=== PATIENT | female | born 1975 | race Caucasian/White ===

== ENCOUNTER → 2017-10-29 | Outpatient (CLI) | payer OTHER | END | disposition home or self-care (01) | LOC: KCIC MAMMO 09:58 | DX: Z12.31 Encounter for screening mammogram for malignant neoplasm of breast (principal); N63.20 Unspecified lump in the left breast, unspecified quadrant | CPT/HCPCS: 77063; 77067 ==

== ENCOUNTER → 2019-03-23 | Outpatient (CLI) | payer OTHER ==
--- NOTE | 2019-03-23 17:17 | KCIC ---
Bilateral digital screening mammograms with 3-D tomosynthesis: Reason for examination: Routine screening. Comparison is made to previous mammographic studies dated 10/29/2017 and 12/16/2013 and ultrasound examinations dated 06/08/2013 and 12/09/2012. Bilateral mammograms in CC and oblique projections were obtained with 2-D imaging and 3-D tomosynthesis imaging on a Siemens Inspiration unit and reviewed on the workstation. Interpretation was made with the benefit of CAD. The skin and nipples show no abnormalities. No abnormal axillary lymph nodes are seen. The breast parenchyma is heterogeneously dense. (Breast density: Category C.) There is a bilobed nodular lesion at the central 4:00 B position of the left breast which may correspond to the complex lesion seen previously on ultrasound examination. There are no new dominant masses, suspicious calcifications or architectural distortion. Impression: Continued presence of a bilobed nodular density located centrally at the 4:00 B position of the left breast. Further evaluation with ultrasound can be performed to verify stability of this finding. Your patient's mammogram demonstrates that she has dense breast tissue (breast density category C or D), which could hide abnormalities, and if she has other risk factors for breast cancer that have been identified, she might benefit from supplemental screening tests that may be suggested by you as her ordering physician. Dense breast tissue, in and of itself, is a relatively common condition. Therefore, this information is not provided to cause undue concern, but rather to raise your awareness and to promote discussion with your patient regarding the presence of other risk factors, in addition to dense breast tissue. Your patient's mammography results will be sent to her. BI-RADS Category 0: Incomplete. Needs additional imaging evaluation. "Our facility is accredited by the [employer] Mammography [employer]." This patient's information has been entered into a reminder system for the patient to be notified with the results of her examination and a target date for the next mammogram. Electronically signed by: Jen Arenas MD (03/23/2019 5:15 PM) [id number]
== END | disposition home or self-care (01) ==
LOC: KCIC MAMMO 12:23
PROVIDERS: ATTEND Obstetrics & Gynecology
DX: Z12.31 Encounter for screening mammogram for malignant neoplasm of breast (principal)
CPT/HCPCS: 77063; 77067

== ENCOUNTER → 2019-03-31 | Outpatient (CLI) | payer OTHER ==
--- NOTE | 2019-03-31 09:40 | KCIC ---
BREAST LEFT Clinical Indication: Abnormal screening mammogram. Comparison: Bilateral mammogram March 23, 2019 and October 29, 2017. Left breast ultrasound December 16, 2013; June 08, 2013; and December 09, 2012. TECHNIQUE: Real-time ultrasound imaging of the left breast is performed. Findings: At the 3:30 o'clock position 4 cm from the nipple, there is a 3 mm probable complicated cyst. At the 3:30 o'clock position 3 cm from the nipple, macrolobular hypoechoic mass is redemonstrated measuring 9 x 6 mm. The size is stable. There is increased through transmission. Long-term stability supports a benign etiology. The mass may be a fibroadenoma. No abnormal axillary lymph node. IMPRESSION: 1. Interval stability of macrolobular hypoechoic mass 3:30 o'clock position 3 cm from the nipple. Recommend routine mammogram screening. 2. BI-RADS Category 2, benign findings. Electronically signed by: Joel Medina MD (03/31/2019 9:37 AM) [id number]
== END | disposition home or self-care (01) ==
LOC: KCIC US 08:48
PROVIDERS: ATTEND Obstetrics & Gynecology
DX: N63.23 Unspecified lump in the left breast, lower outer quadrant (principal)
CPT/HCPCS: 76641

== ENCOUNTER → 2020-06-05 | Outpatient (CLI) | payer OTHER ==
--- NOTE | 2020-06-05 15:50 | KCIC ---
Bilateral digital screening mammograms with 3-D tomosynthesis: Reason for examination: Routine screening. Comparison is made to previous studies dated back to 12/16/2013. Bilateral mammograms in CC and oblique projections were obtained with 2-D imaging and 3-D tomosynthesis imaging on a Siemens Inspiration unit and reviewed on the workstation. Interpretation was made with the benefit of CAD. The skin and nipples show no abnormalities. No abnormal axillary lymph nodes are seen. The breast parenchyma is heterogeneously dense. (Breast density: Category C.) There continues be a small circumscribed nodule centrally in the left breast which appears to be stable. There has been resolution of the small nodules in the upper outer quadrant of the left breast. There are no new dominant masses, suspicious calcifications or architectural distortion. Impression: No evidence of malignancy. Recommend routine screening. Your patient's mammogram demonstrates that she has dense breast tissue (breast density category C or D), which could hide abnormalities, and if she has other risk factors for breast cancer that have been identified, she might benefit from supplemental screening tests that may be suggested by you as her ordering physician. Dense breast tissue, in and of itself, is a relatively common condition. Therefore, this information is not provided to cause undue concern, but rather to raise your awareness and to promote discussion with your patient regarding the presence of other risk factors, in addition to dense breast tissue. Your patient's mammography results will be sent to her. BI-RAD Category 2: Benign. "Our facility is accredited by the [employer] Mammography [employer]." This patient's information has been entered into a reminder system for the patient to be notified with the results of her examination and a target date for the next mammogram. Electronically signed by: Jen Arenas MD (06/05/2020 3:47 PM) [email or web address]
== END | disposition home or self-care (01) ==
LOC: KCIC MAMMO 09:19
PROVIDERS: ATTEND Obstetrics & Gynecology
DX: Z12.31 Encounter for screening mammogram for malignant neoplasm of breast (principal); N64.89 Other specified disorders of breast
CPT/HCPCS: 77063; 77067

== ENCOUNTER → 2021-07-18 | Outpatient (CLI) | payer OTHER ==
--- NOTE | 2021-07-19 17:38 | KCIC ---
Bilateral digital screening 2-D and 3-D mammogram Bilateral mammograms in CC and oblique projections were obtained with 2-D imaging and 3-D tomosynthes is imaging and reviewed on the workstation. mammograms: Reason for examination: Routine screening. Comparison: Mammograms from 06/05/2020 and 03/23/2019. Left breast ultrasound from of 03/31/2019. Interpretation was made with the benefit of CAD. FINDINGS: Breast density: Category C. There is heterogeneously dense fibroglandular tissue, which may obscure s mall masses. There is possible architectural distortion with associated nodularity in the 3:00 position of the lef t breast, approximately 1 cm from the nipple at middle depth. No other evidence of a breast mass or a rchitectural distortion is seen. No malignant-appearing calcifications are identified. IMPRESSION: Possible architectural distortion with associated nodularity in the 3:00 position of the left breast, 1 cm from the nipple, at middle depth. Further evaluation with a diagnostic left mammogram (includin g 3-D rolled CC views and mediolateral views) and targeted left breast ultrasound, including axilla, is recommended. Assessment: BI-RADS 0. Incomplete. Additional imaging is recommended. Recommendation: Diagnostic left mammogram. Targeted left breast ultrasound. Your patient's mammogram demonstrates that she has dense breast tissue (breast density category C or D), which could hide abnormalities, and if she has other risk factors for breast cancer that have bee n identified, she might benefit from supplemental screening tests that may be suggested by you as her ordering physician. Dense breast tissue, in and of itself, is a relatively common condition. Therefo re, this information is not provided to cause undue concern, but rather to raise your awareness and t o promote discussion with your patient regarding the presence of other risk factors, in addition to d ense breast tissue. This patient's information has been entered into a reminder system for the patient to be notified wit h the results of her examination by mail and a target date for the next mammogram. A reminder letter will be generated. Electronically signed by: Lora Perez MD (07/19/2021 5:35 PM) [email or web address]
== END ==
LOC: KCIC MAMMO 10:17
PROVIDERS: ATTEND Obstetrics & Gynecology
DX: Z12.31 Encounter for screening mammogram for malignant neoplasm of breast (principal)
CPT/HCPCS: 77063; 77067